=== PATIENT | male | born 1995 | race Two or more races ===

== ENCOUNTER 2018-03-12 19:06 | Emergency (ER) | payer SELFPAY ==
[~2018-03-12] VITALS: Ht 180.3 cm; Wt 72.6 kg
[2018-03-12 19:10] VITALS: BP 122/83
[2018-03-12 20:14] LABS: EOSINOPHILS % (AUTO) 3.3 % (0.0-3.0); HEMATOCRIT 40.7 % (42.0-52.0); HEMOGLOBIN 13.9 G/DL (14.2-18.0); LYMPHOCYTES % (AUTO) 27.5 % (20.0-45.0); MEAN CORPUSCULAR VOLUME 80 FL (80-99); MONOCYTES % (AUTO) 8.8 % (1.0-10.0); NEUTROPHILS % (AUTO) 59.3 % (45.0-75.0); PLATELET COUNT 227 K/UL (150-450); RED BLOOD COUNT 5.08 M/UL (4.70-6.10); RED CELL DISTRIBUTION WIDTH 12.3 % (11.6-14.8); WHITE BLOOD COUNT 7.6 K/UL (4.8-10.8)
[2018-03-12 20:21] LABS: ANION GAP 9 mmol/L (5-15); BLOOD UREA NITROGEN 17 mg/dL (7-18); CALCIUM 9.3 MG/DL (8.5-10.1); CARBON DIOXIDE 27 MMOL/L (21-32); CHLORIDE 102 MMOL/L (98-107); CREATININE 0.8 MG/DL (0.55-1.30); POTASSIUM 3.9 MMOL/L (3.5-5.1); SODIUM 138 MMOL/L (136-145)
[2018-03-12 20:22] VITALS: BP 115/67
[2018-03-12 20:25] LABS: ALANINE AMINOTRANSFERASE 50 U/L (12-78); ALBUMIN 4.1 G/DL (3.4-5.0); ALKALINE PHOSPHATASE 137 U/L (46-116); ASPARTATE AMINO TRANSFERASE 33 U/L (15-37); BILIRUBIN,TOTAL 0.4 MG/DL (0.2-1.0)
--- NOTE | 2018-03-12 20:56 | Emergency Room Report ---
History of Present Illness General Chief Complaint: Overdose Source: Patient Present Illness HPI Patient has a history of opiate dependence. Patient abuses. No daily. Patient was brought in by the police. Patient apparently admitted swallowing 3 g of fentanyl prior to arrival. He states usually only takes 1 g. Ears very sleepy. Apparently ingested a couple hours prior to arrival. No other complaints are noted. Patient denies any fever chest pain shortness of breath. He however does appear very sleepy. Denies any other coingestions. Symptoms noted to be severe.No other modifying factors. No other associated signs and symptoms. No other complaints were noted. Allergies: Coded Allergies: No Known Allergies (Unverified , 03/12/18) Patient History Past Medical History: asthma Past Surgical History: none Pertinent Family History: none Social History: Reports: drug use Reviewed Nursing Documentation: PMH: Agreed; PSxH: Agreed Nursing Documentation-PM Past Medical History: No History, Except For Hx Asthma: Yes History Of Psychiatric Problem: No - drug obuse Review of Systems All Other Systems: negative except mentioned in HPI Physical Exam Vital Signs Date Time Temp Pulse Resp B/P (MAP) Pulse Ox O2 Delivery O2 Flow Rate FiO2 03/12/18 18:59 98.1 60 18 122/83 100 Room Air Sp02 EP Interpretation: reviewed, normal General Appearance: lethargic Head: normocephalic, atraumatic Eyes: bilateral eye other - PinPoint pupils ENT: normal ENT inspection, hearing grossly normal, normal voice, dry mucus membranes Neck: normal inspection, full range of motion, supple, no bony tend Respiratory: normal inspection, lungs clear, normal breath sounds, no respiratory distress, no retraction, no wheezing Cardiovascular #1: regular rate, rhythm, no edema Gastrointestinal: normal inspection, normal bowel sounds, non tender, soft, no guarding, no hernia Genitourinary: no CVA tenderness Musculoskeletal: normal inspection, back normal, normal range of motion Neurologic: responsive, other - Sleepy nonfocal Psychiatric: depressed affect, other - Poor insight Skin: normal inspection, normal color, no rash Medical Decision Making Diagnostic Impression: Primary Impression: Drug overdose Additional Impression: Opiate abuse, continuous ER Course Patient presents emergency department today with acute drug overdose. Differential considerations include severe overdose, toxic overdose, other coingestants, suicidal attempt just name a few. Patient's exam and history is consistent with a opiate overdose. We will monitor patient here until patient' s clinically sober. Patient's O2 saturation appears stable at this time. We' ll not administer Narcan at this time as patient appears to be maintaining his respirations and has stable vital signs. We'll observe patient until he becomes clinically sober and will discharge her that time. We'll advised to stop abusing opiates. We'll advise return emergency room for any worsening symptoms and as needed. Labs Test 03/12/18 19:30 03/12/18 20:00 White Blood Count 7.6 K/UL (4.8-10.8) Red Blood Count 5.08 M/UL (4.70-6.10) Hemoglobin 13.9 G/DL (14.2-18.0) Hematocrit 40.7 % (42.0-52.0) Mean Corpuscular Volume 80 FL (80-99) Mean Corpuscular Hemoglobin 27.4 PG (27.0-31.0) Mean Corpuscular Hemoglobin Concent 34.3 G/DL (32.0-36.0) Red Cell Distribution Width 12.3 % (11.6-14.8) Platelet Count 227 K/UL (150-450) Mean Platelet Volume 6.0 FL (6.5-10.1) Neutrophils (%) (Auto) 59.3 % (45.0-75.0) Lymphocytes (%) (Auto) 27.5 % (20.0-45.0) Monocytes (%) (Auto) 8.8 % (1.0-10.0) Eosinophils (%) (Auto) 3.3 % (0.0-3.0) Basophils (%) (Auto) 1.0 % (0.0-2.0) Sodium Level 138 MMOL/L (136-145) Potassium Level 3.9 MMOL/L (3.5-5.1) Chloride Level 102 MMOL/L (98-107) Carbon Dioxide Level 27 MMOL/L (21-32) Anion Gap 9 mmol/L (5-15) Blood Urea Nitrogen 17 mg/dL (7-18) Creatinine 0.8 MG/DL (0.55-1.30) Estimat Glomerular Filtration Rate > 60 mL/min (>60) Glucose Level 85 MG/DL (74-106) Calcium Level 9.3 MG/DL (8.5-10.1) Total Bilirubin 0.4 MG/DL (0.2-1.0) Aspartate Amino Transf (AST/SGOT) 33 U/L (15-37) Alanine Aminotransferase (ALT/SGPT) 50 U/L (12-78) Alkaline Phosphatase 137 U/L (46-116) Total Protein 8.3 G/DL (6.4-8.2) Albumin 4.1 G/DL (3.4-5.0) Globulin 4.2 g/dL Albumin/Globulin Ratio 1.0 (1.0-2.7) Salicylates Level 2.4 ug/mL (2.8-20) Acetaminophen Level < 2 MCG/ML (10-30) Serum Alcohol < 3 mg/dL Last Vital Signs Date Time Temp Pulse Resp B/P (MAP) Pulse Ox O2 Delivery O2 Flow Rate FiO2 03/12/18 19:10 72 12 03/12/18 19:10 98.1 122/83 100 Room Air Status: improved Disposition: HOME, SELF-CARE Condition: Stable Deniz Perry MD Mar 12, 2018 20:56
[2018-03-12 22:38] VITALS: BP 115/71
[2018-03-13 00:06] VITALS: BP 110/67
[2018-03-13 02:29] VITALS: BP 115/71
[2018-03-13 04:37] VITALS: BP 115/71
[2018-03-13 05:24] VITALS: BP 106/69
== END 2018-03-13 05:25 | disposition home or self-care (01) ==
LOC: EDBD 19:06 → EMR 21:53
DX: T40.2X1A Poisoning by other opioids, accidental (unintentional), initial encounter (principal); Y92.9 Unspecified place or not applicable; F11.20 Opioid dependence, uncomplicated; J45.909 Unspecified asthma, uncomplicated
CPT/HCPCS: 36415; 80053; 80307; 85025; 96360; 99284; G0480; 80329